=== PATIENT | female | born 1985 | race Caucasian/White ===

== ENCOUNTER → 2023-05-04 | Outpatient (CLI) | payer OTHER ==
--- NOTE | 2023-05-05 06:52 | MR ---
EXAMINATION TYPE: MR knee LT wo con DATE OF EXAM: 05/04/2023 COMPARISON: Outside left knee x-ray 2 days earlier. HISTORY: Left knee pain and swelling, pain shoots down into left leg, numbness, cold, Injury 04-29-23 TECHNIQUE: Multiplanar, multisequence images of the knee is performed without IV contrast. FINDINGS: MEDIAL MENISCUS: Anterior and posterior horns are intact without tear. LATERAL MENISCUS: Anterior and posterior horns are intact without tear. CRUCIATE LIGAMENTS: The anterior and posterior cruciate ligaments are intact and unremarkable. COLLATERAL LIGAMENTS: The medial collateral ligament and lateral collateral ligament complex are inta ct and unremarkable. EXTENSOR MECHANISM: Visualized quadriceps and patellar tendons are intact. EFFUSION: No significant suprapatellar joint effusion. POPLITEAL CYST: No popliteal/hopkins cyst. TRICOMPARTMENT SPACES: Mild tricompartment joint space loss. No significant spurring. CARTILAGE: Tricompartment articular cartilage is preserved. BONE MARROW SIGNAL: There is subtle linear diminished T1 signal in the inferior aspect of the patella seen on coronal image 5 extending medially. There is more prominent heterogeneous increased T2 signa l throughout the majority of the patella. There is adjacent edema into Hoffa's fat pad and the anteri or subcutaneous tissue. Patellar tendon appears intact. OTHER: No additional significant abnormality is appreciated. IMPRESSION: 1. Subtle acute nondisplaced radio-occult fracture through the inferior aspect of the patella with mo re prominent associated osseous contusion injury and adjacent edema. 2. No ligamentous or tendon tear is identified.
== END | disposition home or self-care (01) ==
LOC: RADMRIMAIN 18:33
PROVIDERS: ATTEND Orthopaedic Surgery
DX: S82.92XA Unspecified fracture of left lower leg, initial encounter for closed fracture (principal); S80.02XA Contusion of left knee, initial encounter; R60.0 Localized edema